=== PATIENT | female | born 1940 | race Caucasian/White ===

== ENCOUNTER 2018-05-13 14:26 | Outpatient (CLI) | payer MEDICARE, SELFPAY ==
--- NOTE | 2018-05-13 10:26 | DI.RAD_ITS ---
SYMPTOMS/DIAGNOSIS: BILATERAL KNEE PAIN RIGHT KNEE: Three views. No priors. There is mild narrowing of the medial femorotibial joint space and moderate narrowing of the patellofemoral joint. Periarticular spurring is seen involving all three joint compartments, particularly the patellofemoral joint. The bones appear intact. Soft tissues are unremarkable. 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 LEFT KNEE: Three views. No priors. Moderately severe narrowing of the patellofemoral joint space is noted. There is subchondral sclerosis and periarticular spurring also noted at this joint. Mild periarticular spurring is seen in both the medial and lateral femorotibial joint spaces. The bones are intact and normally mineralized. The soft tissues are unremarkable. 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
== END 2018-05-13 14:46 ==
PROVIDERS: PCP Family Medicine; Visit Provider Student in an Organized Health Care Education/Training Program
DX: M25.561 Pain in right knee (principal); M25.562 Pain in left knee; M17.11 Unilateral primary osteoarthritis, right knee; M17.12 Unilateral primary osteoarthritis, left knee
CPT/HCPCS: 20610; 73562; 99213; J1040

== ENCOUNTER 2018-10-15 00:16 | Outpatient (CLI) | payer MEDICARE, SELFPAY ==
--- NOTE | 2018-10-15 10:18 | DI.MAMMO_ITS ---
SYMPTOM/DIAGNOSIS: SCREENING, Z12.31 MAMMOGRAMS: Mammograms were interpreted according to the usual protocol including computer analysis with CAD system, tomosynthesis and C view imaging. The breasts are of moderate density with fairly symmetrical distribution of fibroglandular tissue. No dominant mass or clumped microcalcification is identified in either breast. The current examination is compared with previous examinations including 10/2017 and there has been no gross interval change in appearance in comparison with the previous studies. CONCLUSION: No specific evidence of malignancy at this time. Routine screening examinations are suggested at yearly intervals in this age group according to the ACS/ACR guidelines. Category 1. Breast density, category B. MQSA ASSESSMENT OF FINDINGS: Negative. Category 1. Patient will receive a letter notifying them of these results. BI-RADS category B. There are scattered areas of fibroglandular density.
== END 2018-10-15 00:36 ==
PROVIDERS: PCP Family Medicine; Visit Provider Family Medicine
DX: Z12.31 Encounter for screening mammogram for malignant neoplasm of breast (principal)
CPT/HCPCS: 77063; 77067

== ENCOUNTER 2018-10-28 09:02 | Emergency (ER) | payer MEDICARE, SELFPAY ==
[2018-10-28] VITALS (38 sets, daily range): BP systolic 121–162; BP diastolic 64–129; PULSE 54–72; RESP 12–24; TEMP 36.7–36.8; O2SAT 93–99
[2018-10-28] MEDS: Normal Saline Flush 10 ML SYR IVP (09:15)
--- NOTE | 2018-10-28 09:20 | DI.RAD_ITS ---
SYMPTOM/DIAGNOSIS: CHEST PAIN FRONTAL AND LATERAL CHEST: Comparison is made with 10/23/17. Heart size and pulmonary vasculature are within normal limits. The lungs are clear and well expanded. No effusions or pneumothoraces are identified. There are degenerative changes seen in the spine. IMPRESSION: No acute pulmonary process.
--- NOTE | 2018-10-28 09:30 | ED.GENADUL_ITS ---
Discharge Plan Disposition Patient Disposition: HOME Condition: Improving Discharge Details Chief Complaint: Chest Pain Clinical Impression: Atypical chest pain, Heart palpitations Primary Care Provider: Betsey Gilliam ED Provider: Daniel Interiano Home Meds and New Rx's Prescriptions: Continued calcium carbonate-vitamin D3 [Caltrate with Vitamin D3] 1 EACH tablet 2 ea PO DAILY RF: 0 cholecalciferol (vitamin D3) 1,000 UNIT capsule 2,000 unit PO DAILY RF: 0 magnesium oxide 250 MG tablet 250 mg PO DAILY RF: 0 lisinopril 20 MG tablet 20 mg PO DAILY Qty: 90 RF: 3 hydrochlorothiazide 25 MG tablet 25 mg PO DAILY Qty: 90 RF: 4 Atorvastatin Calcium 20 MG tablet 20 mg PO DAILY Qty: 90 RF: 0 aspirin 325 mg tablet 325 mg PO DAILY RF: 0 ibuprofen 200 mg capsule 400 mg PO DAILY RF: 0 levothyroxine 137 mcg tablet 137 mcg PO DAILY Qty: 90 RF: 4 Discharge Instructions Instructions: Chest Pain (ED), Palpitations (ED) Additional Instructions: Please wear the Holter monitor for the next 48 hours and return it as instructed by respiratory therapist. Return immediately to the emergency department for any new or significant worsening of symptoms or further concerns you may have. Otherwise follow-up with cardiology office for reassessment and further testing as needed. Referrals: Desean Alvarado MD [ NON-[facility] STAFF PHYSICIAN] - (Please follow-up with wire brush operator next 1-2 weeks as needed for reassessment or directed by their office) Discharge Data Discharge Date/Time-TO BE ENTERED AT DEPARTURE: 10/28/18 13:15 Medical Decision Making Patient presenting the emergency department chief complaint of burning chest pain. Patient states that this started yesterday morning approximately 2-3 hours after having breakfast. Patient states that it was intermittent throughout the day and called cardiology yesterday who recommended she come to the emergency department. Patient took Tums and aspirin and decided to wait and see how it did but continued to have intermittent episodes of this. She does state couple episodes of feeling like she may have had palpitations. She states ongoing chronic history of dyspnea with activity that is not changed or wo rsened. Physical exam is positive for anterior chest wall reproducible pain otherwise normal cardiac and respiratory examination. Plan to check labs to rule out ACS but I feel this is low likelihood given reproducible anterior chest wall pain along with a burning sensation substernal. Plan to give GI cocktail pending result Review of labs is nondiagnostic and shows no initial elevation of troponin. Plan to check second troponin and patient is agreeable to this. Patient states some improvement of symptoms after GI cocktail but occasional palpitations/flutters plan to check second troponin and if negative discharge patient with personnel monitor. Review of second troponin is also negative. Patient reassessed and states no further palpitation feelings and denies any current pain or discomfort. I feel that patient is able to be safely discharged with a Holter monitor and to follow-up with cardiology in the next 1-2 weeks or as directed by their office. Return precautions discussed. After discussion of diagnosis and plan of care patient has no further needs, questions, or concerns and states clear understanding to return to the emergency department for any worsening symptoms. Lab Data Lab results reviewed: Yes I reviewed the patient's lab results. ECG Data Attestation: I personally reviewed and interpreted this ECG (s) as follows: Prior ECG tracings: available for review Interpretation: EKG shows sinus rhythm with rate of 61, no STEMI, otherwise nondiagnostic EKG. EKG reviewed with Dr. Ana Paula Rodríguez. HPI General Mode of arrival: ambulatory . Date/Time Provider Initiated Documentation: 10/28/18 09:20 . Limitations to Documentation: no limitations . Information obtained by: patient and RN notes reviewed . History of Present Illness 78 year old F presents to the emergency department with the chief complaint of Chest pain, described as mild, with intensity rated at 1. Quality is described as burning, and is localized to the chest. Patient started experiencing this day(s) (1) and it has been intermittent. No relieving factors improve symptom(s), No exacerbating factors reported . Patient notes no other symptoms.. Related Data Home Medications Medication Instructions Recorded Confirmed calcium carbonate-vitamin D3 2 ea PO DAILY 12/17/12 10/28/18 [Caltrate with Vitamin D3] cholecalciferol (vitamin D3) 2,000 unit PO DAILY 12/17/12 10/28/18 magnesium oxide 250 mg PO DAILY 10/14/17 10/28/18 hydrochlorothiazide 25 mg PO DAILY #90 tab-cap 11/28/17 10/28/18 lisinopril 20 mg PO DAILY #90 tab-cap 11/28/17 10/28/18 aspirin 325 mg tablet 325 mg PO DAILY tab-cap 12/20/18 02/27/19 ibuprofen 200 mg capsule 400 mg PO DAILY tab-cap 08/20/18 10/28/18 levothyroxine 137 mcg tablet 137 mcg PO DAILY #90 tab-cap 09/04/18 10/28/18 Previous Rx's Medication Instructions Recorded hydrochlorothiazide 25 mg PO DAILY #90 tab-cap 11/28/17 lisinopril 20 mg PO DAILY #90 tab-cap 11/28/17 levothyroxine 137 mcg tablet 137 mcg PO DAILY #90 tab-cap 09/04/18 Allergies Allergy/AdvReac Type Severity Reaction Status Date / Time honey Allergy Severe GI Unverified 10/28/18 09:17 upset/swelling of throat naproxen Allergy Severe SOB, Unverified 10/28/18 09:17 Swelling LE Sulfa (Sulfonamide Allergy Severe Skin Rash Unverified 10/28/18 09:17 Antibiotics) clindamycin Allergy Intermediate drug rash Unverified 10/28/18 09:17 Penicillins Allergy Intermediate HIVES Unverified 10/28/18 09:17 cephalexin AdvReac Intermediate drug rash Unverified 10/28/18 09:17 steph flavor AdvReac Mild GI upset Unverified 10/28/18 09:17 General Stated Complaint: Chest Pain MARIA ELENA: 2 Review of Systems Constitutional Denies chills, Denies fever(s) and Denies malaise Cardiovascular Reports as per HPI, Reports chest pain, Denies chest pain with activity, Denies syncope, Denies irregular heart rhythm, Reports palpitations (Intermittent) and Reports dyspnea (With activity-chronic) Respiratory Denies cough, Denies hemoptysis and Reports dyspnea (With activity-chronic) Gastrointestinal Denies abdominal pain, Reports diarrhea (One episode today), Denies nausea and Denies vomiting Neurologic Denies syncope Psychiatric Denies anxiety Endocrine Denies cold intolerance, Denies heat intolerance and Reports palpitations (Intermittent) [facility] Surgical History Endometrial Biopsy Rotator Cuff Repair (~2008) Family History Mother Essential hypertension Non-Hodgkin's lymphoma Father Diabetes Essential hypertension Heart disease Maternal Grandfather Diabetes Essential hypertension Stroke Paternal Grandfather Colon cancer Maternal Grandmother Stroke Paternal Grandmother Stroke Heart disease Son No problems noted. Son No problems noted. Son No problems noted. 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 pets and animals: Yes pets and animals: cat(s) frequency: daily duration: 30-45 minutes/day Smoking and Tabacco status: Former Tobacco Use quit date: 09/01/84 second hand exposure: No alcohol intake: current alcohol intake frequency: 0-2 drinks per day Alcohol type: wine substance use type: does not use reginald/pentecostal: No preference special reginald needs: No Exam Const General: cooperative, healthy appearing, comfortable, no acute distress, not diaphoretic and not ill appearing Nutritional Appearance: average body habitus Orientation: alert, awake and oriented x3 Limitations: mental status not altered Neck Neck: normal visual inspection, full ROM, trachea midline, supple and no anterior neck swelling Thyroid: thyroid normal Carotids: normal carotid upstroke and no bruits Chest Chest: normal inspection of the chest and tenderness (Left anterior chest wall) Resp Effort & Inspection: normal respiratory effort and able to speak in complete sentences Auscultation: clear to auscultation bilaterally Cardio Jugular venous pressure: no JVD Palpation: normal PMI Rate: regular rate Rhythm: regular rhythm Heart Sounds: S1 normal, S2 normal, no click, no gallops, no murmurs and no rubs Bruits: no abdominal aortic bruits and no carotid bruits Pulses: radial pulses present bilaterally 2+ GI Inspection: normal to inspection Palpation: soft, no aortic enlargement, no pulsatile masses and nontender Auscultation: normal bowel sounds Skin General skin exam: no rashes or lesions noted Neuro General: alert, awake, oriented x3, tone normal and moves all extremities Course Vital Signs Temperature 36.7 C 10/28/18 09:13 Pulse 68 10/28/18 09:13 Respiratory Rate 14 10/28/18 09:13 Blood Pressure 162/83 H 10/28/18 09:13 Pulse Oximetry 99 10/28/18 09:13 Temperature 36.7 C 10/28/18 09:13 Temperature Source Skin 10/28/18 09:13 Pulse 68 10/28/18 09:13 Respiratory Rate 16 10/28/18 09:18 Respiratory Effort 10/28/18 09:22 Respiratory Depth Normal 10/28/18 09:18 Respiratory Pattern Normal 10/28/18 09:18 Blood Pressure 162/83 H 10/28/18 09:13 Pulse Oximetry 99 10/28/18 09:13 Oxygen Delivery Method Room Air 10/28/18 09:13 Oxygen Flow Rate 0 10/28/18 09:13 Pain Level 0 10/28/18 09:13 Comment 10/28/18 09:13
[2018-10-28 09:43] LABS: Abs Immature Grans 0.02 k/cumm (0.0-0.09); Absolute Basophil Count 0.07 k/cumm (0.0-0.2); Absolute Eosinophil Count 0.51 k/cumm (0.0-0.7); Absolute Lymphocyte Count 1.58 k/cumm (1.2-3.4); Absolute Monocyte Count 0.65 k/cumm (0.11-0.7); Absolute Neutrophil Count 3.55 k/cumm (1.2-6.7); Basophils % 1.1; HCT 41.6 % (36.0-46.0); HGB 13.8 g/dL (12.0-15.5); Immature Grans % 0.3; Lymphocytes % 24.8; Mean Corp. HGB Concentration 33.2 g/dL (32.0-36.0); Mean Corpuscular Hemoglobin 31.3 pg (27.0-33.0); Mean Corpuscular Volume 94.3 fL (80-95); Mean Platelet Volume 10.1 fL (8.0-11.0); Monocytes % 10.2; Neutrophils % 55.6; Platelet Count 206 x1000/uL (130-400); RBC 4.41 m/cumm (4.00-5.20); RBC Distribution Width 12.8 % (11.7-14.6); White Blood Cell Count 6.38 k/cumm (4.4-10.8)
[2018-10-28 10:12] LABS: ALT 24 U/L (12-78); AST 18 U/L (15-37); Albumin 3.6 g/dL (3.4-5.0); Alkaline Phosphatase 107 U/L (46-116); Anion Gap 7.6 mmol/L (3-11); BUN 21 mg/dL (7-18); Bilirubin, Total 0.4 mg/dL (0.2-1.0); CO2 29.4 mmol/L (21.0-32.0); CREATININE 0.69 mg/dL (0.55-1.02); Calcium 9.3 mg/dL (8.5-10.1); Chloride 106 mmol/L (98-107); Glucose 92 mg/dL (70-100); Magnesium 2.1 mg/dL (1.8-2.4); Potassium 3.8 mmol/L (3.5-5.1); Sodium 143 mmol/L (136-145); Total Protein 6.8 g/dL (6.4-8.2); Troponin I < 0.02 ng/mL (0.00-0.06)
[2018-10-28 12:27] LABS: Troponin I < 0.02 ng/mL (0.00-0.06)
--- NOTE | 2018-10-29 08:30 | PDOC.ERCMPRO ---
Care Management Progress Note 10/29-Leroy STEPHENSON requested assistance with a cardiology consult in 1-2 weeks for chest pain, heart palpitations. Referral faxed to [facility] this am.
== END 2018-10-28 13:15 | disposition home or self-care (01) ==
PROVIDERS: Emergency Provider Nurse Practitioner Family; PCP Family Medicine
DX: R07.89 Other chest pain (principal); R00.2 Palpitations
CPT/HCPCS: 36415; 80053; 93005; 99285; 71046; 83735; 84484; 85025; 93010; 93225

== ENCOUNTER 2018-10-31 11:29 | Outpatient (CLI) | payer MEDICARE, SELFPAY ==
--- NOTE | 2018-11-02 12:06 | HOLTER_ITS ---
DATE OF DICTATION: November 02, [address]: 1 day, 18 hours Baseline rhythm sinus. Rare single PAC. Two bursts of SVT, longest 4-beat duration, fastest 146 bpm. No atrial fibrillatio n. Rare single PVC. One couplet. No VT. No bradycardia/pause. SYMPTOMS: Shortness of breath noted twice during sinus rhythm 65, [address]-T wave changes. Flutter noted four times during sinus rhythm 73-86 bpm. Average heart rate 69 bpm, range 51-130 bpm.
== END 2018-10-31 11:49 ==
PROVIDERS: PCP Family Medicine; Visit Provider Family Medicine
DX: R00.2 Palpitations (principal); R07.89 Other chest pain; I47.1 Supraventricular tachycardia
CPT/HCPCS: 93226

== ENCOUNTER 2018-11-02 09:55 | Outpatient (CLI) | payer MEDICARE, SELFPAY | END 2018-11-02 10:15 | PROVIDERS: PCP Family Medicine; Referring Provider Nurse Practitioner Family; Visit Provider Internal Medicine Interventional Cardiology | DX: R00.2 Palpitations (principal); R07.89 Other chest pain; I47.1 Supraventricular tachycardia | CPT/HCPCS: 93227 ==

== ENCOUNTER → 2019-01-15 09:29 | Outpatient (BNVA) | payer MEDICARE, SELFPAY | PROVIDERS: PCP Family Medicine; Referring Provider Family Medicine; Visit Provider Student in an Organized Health Care Education/Training Program | DX: M17.12 Unilateral primary osteoarthritis, left knee (principal); Z98.890 Other specified postprocedural states; M17.11 Unilateral primary osteoarthritis, right knee | CPT/HCPCS: 20610; 99213; J1040 ==

== ENCOUNTER 2019-03-22 01:47 | Outpatient (CLI) | payer MEDICARE, SELFPAY ==
[2019-03-22 10:01] LABS: Hemoglobin A1C 5.5 % (4.5-6.2)
[2019-03-22 10:08] LABS: ALT 31 U/L (12-78); AST 15 U/L (15-37); Albumin 3.7 g/dL (3.4-5.0); Alkaline Phosphatase 93 U/L (46-116); Anion Gap 9.7 mmol/L (3-11); BUN 22 mg/dL (7-18); Bilirubin, Total 0.5 mg/dL (0.2-1.0); CO2 27.3 mmol/L (21.0-32.0); CREATININE 0.75 mg/dL (0.55-1.02); Calculated LDL 83 mg/dL; Chloride 104 mmol/L (98-107); Cholesterol 195 mg/dL (50-200); Glucose 90 mg/dL (70-100); HDL Cholesterol 103 mg/dL (40-60); Potassium 4.2 mmol/L (3.5-5.1); Sodium 141 mmol/L (136-145); TSH 0.94 uIU/mL (0.36-3.74); Total Protein 6.5 g/dL (6.4-8.2); Triglyceride 47 mg/dL (30-150)
[2019-03-23 11:23] LABS: Lyme Ab w Rflx to Lyme Confirm Negative
== END 2019-03-22 02:07 ==
PROVIDERS: PCP Family Medicine; Visit Provider Family Medicine
DX: I10 Essential (primary) hypertension (principal); R73.9 Hyperglycemia, unspecified; E03.9 Hypothyroidism, unspecified; W57.XXXA Bitten or stung by nonvenomous insect and other nonvenomous arthropods, initial encounter; E78.5 Hyperlipidemia, unspecified; T14.8XXA Other injury of unspecified body region, initial encounter
CPT/HCPCS: 36415; 80053; 80061; 83721; 83036; 84443; 86618

== ENCOUNTER 2019-09-22 07:00 | Outpatient (CLI) | payer MEDICARE, SELFPAY ==
[2019-09-22 14:09] LABS: FREE T4 1.43 ng/dL (0.76-1.46); TSH 0.23 uIU/mL (0.36-3.74)
[2019-09-22 17:43] LABS: T3, Total 125 ng/dL (97-169)
== END 2019-09-22 07:20 ==
PROVIDERS: PCP Family Medicine; Visit Provider Family Medicine
DX: E03.9 Hypothyroidism, unspecified (principal); I10 Essential (primary) hypertension
CPT/HCPCS: 36415; 84439; 84443; 84480

== ENCOUNTER 2019-10-27 01:40 | Outpatient (CLI) | payer MEDICARE, SELFPAY ==
--- NOTE | 2019-10-27 15:20 | DI.MAMMO_ITS ---
EXAM: MAMMO SCREENING CLINICAL HISTORY: screening,Z12.39 TECHNIQUE: Mammograms were interpreted according to the usual protocol including computer analysis w ith CAD system, tomosynthesis and C-view imaging. COMPARISON: 2009 through 2018 FINDINGS: The breasts are composed of scattered fibroglandular densities, Breast Density category B. No suspicious masses or suspicious microcalcifications are seen. No skin thickening or abnormal axillary lymph nodes are seen. There has been no significant change from prior exams. IMPRESSION: BIRADS Category 1, negative mammogram. Yearly screening mammography is recommended.
== END 2019-10-27 02:00 ==
PROVIDERS: PCP Family Medicine; Visit Provider Family Medicine
DX: Z12.31 Encounter for screening mammogram for malignant neoplasm of breast (principal)
CPT/HCPCS: 77063; 77067

== ENCOUNTER 2020-08-21 08:08 | Outpatient (CLI) | payer MEDICARE, SELFPAY ==
[2020-08-21] MEDS: Omnipaque 350 MG/ML 50 ML BTL IJ (12:32)
[2020-08-21] MEDS: Breeza Beverage 473 ML BTL PO (12:33)
[2020-08-21 13:08] LABS: Abs Immature Grans 0.03 10^3/uL (0.0-0.06); Absolute Basophil Count 0.07 10^3/uL (0.0-0.2); Absolute Eosinophil Count 0.22 10^3/uL (0.0-0.7); Absolute Lymphocyte Count 2.08 10^3/uL (1.2-3.4); Absolute Monocyte Count 0.64 10^3/uL (0.1-0.8); Basophils % 0.8; Eosinophils % 2.6; HCT 41.6 % (36.0-46.0); Immature Grans % 0.4; Lymphocytes % 24.9; MCH 31.3 pg (27.0-33.0); MCHC 33.7 % (32.0-36.0); MCV 93.1 fL (80-95); MPV 9.6 fL (8.0-11.0); Monocytes % 7.7; Neutrophils % 63.6; Nucleated RBC 0 %; Platelet Count 250 10^3/uL (130-400); RBC 4.47 10^6/uL (3.93-5.22); RDW 11.9 % (11.7-14.6); RDW-SD 41.2 fL; WBC 8.34 10^3/uL (4.4-10.8)
[2020-08-21 13:28] LABS: ALT 31 U/L (14-59); AST 21 U/L (15-37); Albumin 3.7 g/dL (3.4-5.0); Alkaline Phosphatase 112 U/L (46-116); Anion Gap 7.2 mmol/L (3-11); BUN 20 mg/dL (7-18); Bilirubin, Total 0.4 mg/dL (0.2-1.0); CO2 28.8 mmol/L (21.0-32.0); CREATININE 0.77 mg/dL (0.55-1.02); Calcium 9.5 mg/dL (8.5-10.1); Chloride 101 mmol/L (98-107); Glucose 103 mg/dL (74-106); Lipase 158 U/L (73-393); Potassium 3.7 mmol/L (3.5-5.1); Sodium 137 mmol/L (136-145); Total Protein 7.1 g/dL (6.4-8.2)
--- NOTE | 2020-08-21 14:10 | DI.CT_ITS ---
EXAM: CT ABDOMEN PELVIS W CLINICAL HISTORY: Pain, vomitting, nausea, fever, R10.11, RUQ PAIN TECHNIQUE: Imaging Protocol: Axial computed tomography images with coronal and sagittal reformatted images were created and reviewed CONTRAST MATERIAL: Intravenous: Omnipaque 350 Contrast volume:100 mL Oral: Yes COMPARISON: No exams were available for comparison FINDINGS: ABDOMEN: Lung Bases: Scarring or atelectasis in the lung bases. Liver: Normal density. No measurable mass. Portal, Superior Mesenteric, and Splenic Veins: Unremarkable. Gallbladder and Biliary Tract: No radiodense calculus or dilation. Pancreas: Normal density, no abnormal calcifications or inflammatory process. Spleen: Normal. Adrenals: No masses seen. Kidneys: Normal size, contour and axis. No radiodense stones or obstructive uropathy. There are bilat eral renal cysts. The largest is in the superior pole of the left kidney and measures 5.4 cm in maxi mum diameter. Abdominal Aorta: Abdominal portion non-dilated. Mild atherosclerosis. Bowel: No obstruction or bowel wall thickening. No evidence of appendicitis. Diverticulosis of the s igmoid colon but no evidence of acute diverticulitis. There is a 2.7 cm diverticulum arising from th e posterior wall of the fundus of the stomach. Peritoneal Cavity: No ascites, collection or mesenteric inflammatory response. Lymph Nodes: Within normal limits. Bones: Degenerative changes. Bones are osteopenic. Soft Tissues: Small fat containing umbilical hernia. PELVIS: Bladder: Symmetric distention, no gross wall thickening. Reproductive Organs: Unremarkable as visualized. Lymph Nodes: Within normal limits. Bones: Degenerative changes. Osteopenia. IMPRESSION: No acute abdominal or pelvic process. RADIATION DOSE DELIVERED: 866.05mGy.cm Total DLP DATA REPOSITORY: All CT scans at this facility are submitted to the National Radiology Data Registry (NRDR) Dose Index Registry (DIR) with the [employer] (ACR). RADIATION OPTIMIZATION: All CT scans at this facility use at least one of these dose optimization te chniques: automated exposure control; mA and/or kV adjustment per patient size (includes targeted exa ms where dose is matched to clinical indication); or iterative reconstruction.
[2020-08-21] MEDS: Normal Saline - Diluent 50 ML VIAL IV (14:15)
[2020-08-21] MEDS: Omnipaque 350 MG/ML 100 ML BTL IJ (14:16)
[2020-08-21] MEDS: Normal Saline Flush 10 ML SYR IVP (14:17)
== END 2020-08-21 08:28 ==
PROVIDERS: PCP Family Medicine; Visit Provider Physician Assistant
DX: R10.11 Right upper quadrant pain (principal); R11.2 Nausea with vomiting, unspecified; R50.9 Fever, unspecified; I25.118 Atherosclerotic heart disease of native coronary artery with other forms of angina pectoris
CPT/HCPCS: 80053; 83690; 74177; 85025; J3490; Q9967

== ENCOUNTER 2020-11-27 04:32 | Outpatient (CLI) | payer MEDICARE, SELFPAY ==
[2020-11-27 08:52] LABS: Calculated LDL 98 mg/dL (<100); Cholesterol 198 mg/dL (<200); HDL Cholesterol 92 mg/dL (40-60); TSH 0.34 uIU/mL (0.36-3.74); Triglyceride 42 mg/dL (<150)
== END 2020-11-27 04:33 | disposition home or self-care (01) ==
LOC: LBO 04:32
PROVIDERS: PCP Family Medicine; Visit Provider Family Medicine
DX: I10 Essential (primary) hypertension (principal); E03.9 Hypothyroidism, unspecified
CPT/HCPCS: 36415; 80061; 84443

== ENCOUNTER 2021-01-16 03:22 | Outpatient (CLI) | payer MEDICARE, SELFPAY ==
--- NOTE | 2021-01-16 06:45 | DI.MAMMO_ITS ---
Exam(s) MAMMO SCREENING EXAM: MAMMO SCREENING CLINICAL HISTORY: screening,z12.39 TECHNIQUE: Mammograms were interpreted according to the usual protocol including computer analysis w [employer] CAD system, tomosynthesis and C-view imaging. COMPARISON: 2011 through 2019 FINDINGS: The breasts are composed of scattered fibroglandular densities, Breast Density category B. No suspicious masses or suspicious microcalcifications are seen. No skin thickening or abnormal axillary lymph nodes are seen. There has been no significant change from prior exams. IMPRESSION: BI-RADS Category 1, Negative mammogram Yearly screening mammography is recommended. Breast Density - Category B, scattered fibroglandular densities. A negative radiographic report should not delay biopsy if a dominant or clinically suspicious mass is present. Up to ten percent of cancers are not identified on mammography. A negative report may reinforce clinical impression. Adenosis and dense breasts may obscure an underlying neoplasm. False positive reports average 6 to 10%. Patient will receive a letter notifying them of these results.
[2021-01-16 09:10] LABS: TSH 0.56 uIU/mL (0.36-3.74)
== END 2021-01-16 03:23 | disposition home or self-care (01) ==
LOC: LBO 03:22
PROVIDERS: PCP Family Medicine; Visit Provider Family Medicine
DX: E03.9 Hypothyroidism, unspecified (principal); Z12.31 Encounter for screening mammogram for malignant neoplasm of breast
CPT/HCPCS: 36415; 77063; 77067; 84443

== ENCOUNTER 2021-01-19 08:30 | Outpatient (CLI) | payer MEDICARE, SELFPAY | END 2021-01-19 08:31 | LOC: OCO 02-02 07:09 | PROVIDERS: PCP Family Medicine; Visit Provider Physician Assistant | DX: M17.11 Unilateral primary osteoarthritis, right knee (principal); M17.12 Unilateral primary osteoarthritis, left knee | CPT/HCPCS: 20610; J1040 ==

== ENCOUNTER 2021-04-26 12:16 | Outpatient (CLI) | payer MEDICARE, SELFPAY ==
--- NOTE | 2021-04-26 12:15 | RT.EKG_ITS ---
APPROVED REPORT Exam: Resting ECG Reason for Exam: irreg rhythm Patient Location: O HR:71 bpm ECG Measurements Heart Rate 71 AXIS MN 156 P 44 QRSd 113 QRS 90 QT 424 T 54 QTc 460 Conclusion Sinus rhythm...normal P axis, V-rate 60- 99 Ventricular bigeminy...bigeminy string>4 w/ V complexes
== END 2021-04-26 12:17 | disposition home or self-care (01) ==
LOC: DI.CM 12:17
PROVIDERS: PCP Family Medicine; Visit Provider Nurse Practitioner Family
DX: I49.9 Cardiac arrhythmia, unspecified (principal)
CPT/HCPCS: 93010

== ENCOUNTER 2021-10-04 10:03 | Outpatient (CLI) | payer MEDICARE, SELFPAY ==
--- NOTE | 2021-10-04 09:00 | DI.RAD_ITS ---
Exam(s) XR KNEE RT 3V AP,LAT,PAIGE EXAM: XR KNEE RT 3V AP,LAT,PAIGE CLINICAL HISTORY: pain TECHNIQUE: COMPARISON: CR XR knee LT 3V AP,lat,paige from 05/13/2018 FINDINGS: Three views were obtained. The lateral view suggests a probable narrowing of the cartilaginous joint space of patellofemoral joint, additional evaluation with Merchant view should probably be obtained. There is mild narrowing of medial tibiofemoral cartilaginous joint space. There are mild to moderate marginal osteophytes of patellofemoral and medial tibiofemoral joints. No gross joint effusion seen on the lateral view. 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 RADIATION DOSE DELIVERED: Total DLP
--- NOTE | 2021-10-04 09:00 | DI.RAD_ITS ---
Exam(s) XR KNEE LT 3V AP,LAT,PAIGE EXAM: XR KNEE LT 3V AP,LAT,PAIGE CLINICAL HISTORY: pain TECHNIQUE: COMPARISON: CR XR KNEE RT 3V AP,LAT,PAIGE from 10/04/2021 FINDINGS: Three views were obtained. There is probable narrowing of the cartilaginous joint space of the mejia lofemoral joint. This may be better evaluated on a Merchant view. Otherwise cartilaginous joint spa cristobal are well maintained. Mild marginal osteophyte formation noted at the medial tibiofemoral joint a nd patellofemoral joint. No gross joint effusion seen on the lateral view. IMPRESSION: DJD predominantly involving patellofemoral joint, additional Merchant view may be obtained to evaluat e this joint RADIATION DOSE DELIVERED: Total DLP
== END 2021-10-04 10:04 | disposition home or self-care (01) ==
LOC: DIORS 10:03
PROVIDERS: PCP Family Medicine; Referring Provider Family Medicine; Visit Provider Student in an Organized Health Care Education/Training Program
DX: M17.11 Unilateral primary osteoarthritis, right knee; M17.12 Unilateral primary osteoarthritis, left knee
CPT/HCPCS: 20610; 73562; 99213; J1040

== ENCOUNTER 2022-01-09 01:39 | Outpatient (CLI) | payer MEDICARE, SELFPAY ==
[2022-01-09 10:07] LABS: ALT 30 U/L (14-59); AST 18 U/L (15-37); Albumin 3.8 g/dL (3.4-5.0); Alkaline Phosphatase 119 U/L (46-116); Anion Gap 6.9 mmol/L (3-11); BUN 13 mg/dL (7-18); Bilirubin, Total 0.6 mg/dL (0.2-1.0); CO2 29.1 mmol/L (21.0-32.0); CREATININE 0.6 mg/dL (0.55-1.02); Calcium 8.7 mg/dL (8.5-10.1); Calculated LDL 90 mg/dL (<100); Chloride 104 mmol/L (98-107); Cholesterol 188 mg/dL (<200); Glucose 96 mg/dL (74-106); HDL Cholesterol 86 mg/dL (40-60); Sodium 140 mmol/L (136-145); TSH 0.12 uIU/mL (0.36-3.74); Total Protein 6.7 g/dL (6.4-8.2); Triglyceride 62 mg/dL (<150)
== END 2022-01-09 01:40 | disposition home or self-care (01) ==
LOC: LBO 01:39
PROVIDERS: Family Medicine; PCP Family Medicine; Visit Provider Family Medicine
DX: E03.9 Hypothyroidism, unspecified (principal); I10 Essential (primary) hypertension; I25.118 Atherosclerotic heart disease of native coronary artery with other forms of angina pectoris
CPT/HCPCS: 36415; 80053; 80061; 84443

== ENCOUNTER → 2022-03-22 01:30 | Outpatient (CLI) | payer MEDICARE, SELFPAY ==
--- NOTE | 2022-03-22 07:00 | DI.DEXA_ITS ---
Exam(s) XR DEXA BONE DENSITY W/WO NOAH EXAM: XR DEXA BONE DENSITY W/WO NOAH CLINICAL HISTORY: osteoporosis,M81.0 TECHNIQUE: [employer] Horizon C densitometer analysis of left hip, lumbar spine and left forearm. COMPARISON: CT CT ABDOMEN PELVIS W from 08/21/20202006 through 2014 FINDINGS: Lateral view of the thoracic and lumbar spine shows no evidence of compression fractures. Bone mineral density measurements of the lumbar spine correspond to a total T-score of -3.2, in the osteoporotic range. This represents an 8.8 decrease from 2014 and a 7 percent decrease when compared with 2006. Bone mineral density measurements of the left hip correspond to a total T-score of -2.5. The femora l neck T-score is -2.7, in the osteoporotic range. This represents a 11.9 percent decrease compared with 2014 and 14.1 percent decrease compared with 2006.. The left forearm bone mineral density measurements correspond to a T-score of the distal 3rd of -4.7 , in the osteoporotic range. This represents an 11.9 percent decrease when from 2014 and in 19.3 per cent decrease from 2010. The forearm was not analyzed in 2006.. IMPRESSION: Osteoporosis of the lumbar spine, left hip and left forearm with decreased bone mineral density johnathan red with priors.
--- NOTE | 2022-03-22 07:00 | DI.MAMMO_ITS ---
Exam(s) MAMMO SCREENING EXAM: MAMMO SCREENING CLINICAL HISTORY: screening,Z12.39 TECHNIQUE: Mammograms were interpreted according to the usual protocol including computer analysis w [email or web address] CAD system, tomosynthesis and C-view imaging. COMPARISON: 2012 through 2020 FINDINGS: The breasts are composed of scattered fibroglandular densities, Breast Density category B. No suspicious masses or suspicious microcalcifications are seen. No skin thickening or abnormal axillary lymph nodes are seen. There has been no significant change from prior exams. IMPRESSION: BI-RADS Category 1, Negative mammogram Yearly screening mammography is recommended. Breast Density - Category B, scattered fibroglandular densities. A negative radiographic report should not delay biopsy if a dominant or clinically suspicious mass is present. Up to ten percent of cancers are not identified on mammography. A negative report may reinforce clinical impression. Adenosis and dense breasts may obscure an underlying neoplasm. False positive reports average 6 to 10%. Patient will receive a letter notifying them of these results.
== END ==
PROVIDERS: PCP Family Medicine; Visit Provider Family Medicine
DX: Z12.31 Encounter for screening mammogram for malignant neoplasm of breast (principal); M81.0 Age-related osteoporosis without current pathological fracture; R92.8 Other abnormal and inconclusive findings on diagnostic imaging of breast
CPT/HCPCS: 77063; 77067; 77080

== ENCOUNTER → 2022-03-25 07:55 | Outpatient (BNVA) | payer MEDICARE, SELFPAY | PROVIDERS: PCP Family Medicine; Referring Provider Family Medicine; Visit Provider Physician Assistant Surgical | DX: M17.12 Unilateral primary osteoarthritis, left knee (principal); M17.11 Unilateral primary osteoarthritis, right knee | CPT/HCPCS: 20610; J1040 ==

== ENCOUNTER 2022-04-08 09:21 | Outpatient (CLI) | payer MEDICARE, SELFPAY ==
[2022-04-08 12:53] LABS: TSH (W/Ref FT4) 0.74 uIU/mL (0.36-3.74)
[2022-04-09 10:01] LABS: Lyme Ab w Rflx to Lyme Confirm Negative (Negative)
== END 2022-04-08 09:22 | disposition home or self-care (01) ==
LOC: LOS 09:25
PROVIDERS: PCP Family Medicine; Visit Provider Family Medicine
DX: E03.9 Hypothyroidism, unspecified (principal); M25.59 Pain in other specified joint
CPT/HCPCS: 36415; 84443; 86618

== ENCOUNTER → 2022-06-06 09:30 | Outpatient (BNVA) | payer MEDICARE, SELFPAY | PROVIDERS: PCP Family Medicine; Referring Provider Family Medicine; Visit Provider Student in an Organized Health Care Education/Training Program | DX: M17.12 Unilateral primary osteoarthritis, left knee (principal) | CPT/HCPCS: 20610; J1040 ==

== ENCOUNTER 2022-07-03 10:36 | Outpatient (CLI) | payer MEDICARE, SELFPAY ==
--- NOTE | 2022-07-03 09:45 | DI.RAD_ITS ---
Exam(s) XR SHOULDER RT COMPLETE 2+V EXAM: XR SHOULDER RT COMPLETE 2+V CLINICAL HISTORY: right shoulder pain. TECHNIQUE: 2D digital imaging was performed. Two views. COMPARISON: CR RIGHT SHOULDER COMPLETE from 01/26/2009 FINDINGS: BONES: No acute fracture is present. No bony destructive lesion is seen. Bones appear osteopenic. JOINTS: No dislocation present. Mild spurring at AC joint. Mild spurring glenohumeral joint. Gleno humeral joint space is maintained. SOFT TISSUE: Normal. IMPRESSION: Mild degenerative changes. DATA REPOSITORY: RADIATION DOSE DELIVERED:
== END 2022-07-03 10:37 | disposition home or self-care (01) ==
LOC: DIORS 10:37
PROVIDERS: PCP Family Medicine; Referring Provider Family Medicine; Visit Provider Student in an Organized Health Care Education/Training Program
DX: M12.811 Other specific arthropathies, not elsewhere classified, right shoulder; M75.21 Bicipital tendinitis, right shoulder
CPT/HCPCS: 99214; 73030

== ENCOUNTER → 2022-09-30 09:24 | Outpatient (BNVA) | payer MEDICARE, SELFPAY | PROVIDERS: PCP Family Medicine; Referring Provider Family Medicine; Visit Provider Student in an Organized Health Care Education/Training Program | DX: M17.11 Unilateral primary osteoarthritis, right knee (principal); M17.12 Unilateral primary osteoarthritis, left knee | CPT/HCPCS: 20610; J1040 ==

== ENCOUNTER 2023-01-14 02:46 | Outpatient (CLI) | payer MEDICARE, SELFPAY ==
[2023-01-14 10:23] LABS: Anion Gap 7.7 mmol/L (3-11); BUN 21 mg/dL (7-18); CO2 30.3 mmol/L (21.0-32.0); CREATININE 0.8 mg/dL (0.55-1.02); Calcium 9.5 mg/dL (8.5-10.1); Calculated LDL 90 mg/dL (<100); Chloride 105 mmol/L (98-107); Cholesterol 195 mg/dL (<200); Estimated GFR 74.44 (mL/min/1.73m2); Glucose 104 mg/dL (74-106); HDL Cholesterol 95 mg/dL (40-60); Potassium 4.3 mmol/L (3.5-5.1); Sodium 143 mmol/L (136-145); TSH (W/Ref FT4) 1.57 uIU/mL (0.36-3.74); Triglyceride 50 mg/dL (<150)
== END 2023-01-14 02:47 | disposition home or self-care (01) ==
LOC: LBO 02:46
PROVIDERS: PCP Family Medicine; Visit Provider Family Medicine
DX: I10 Essential (primary) hypertension (principal); E03.9 Hypothyroidism, unspecified
CPT/HCPCS: 36415; 80048; 80061; 84443

== ENCOUNTER 2023-02-14 01:45 | Outpatient (RCR) | payer MEDICARE, SELFPAY ==
[2023-02-14] MEDS: Denosumab 60 MG/ML SYR SC (09:23)
== END 2023-02-28 23:59 | disposition home or self-care (01) ==
LOC: INF 01:45
PROVIDERS: PCP Family Medicine; Visit Provider Family Medicine
DX: M81.0 Age-related osteoporosis without current pathological fracture (principal)
CPT/HCPCS: 96372; J0897

== ENCOUNTER 2023-03-13 02:59 | Outpatient (CLI) | payer MEDICARE, SELFPAY ==
[2023-03-13 09:24] LABS: ALT 23 U/L (14-59); AST 16 U/L (15-37); Albumin 3.9 g/dL (3.4-5.0); Alkaline Phosphatase 110 U/L (46-116); Anion Gap 9.4 mmol/L (3-11); BUN 22 mg/dL (7-18); Bilirubin, Total 0.6 mg/dL (0.2-1.0); CO2 24.6 mmol/L (21.0-32.0); CREATININE 0.8 mg/dL (0.55-1.02); Calcium 8.5 mg/dL (8.5-10.1); Chloride 107 mmol/L (98-107); Estimated GFR 74.44 (mL/min/1.73m2); Glucose 110 mg/dL (74-106); PHOSPHORUS 3.4 mg/dL (2.6-4.7); Potassium 4.1 mmol/L (3.5-5.1); Sodium 141 mmol/L (136-145); Total Protein 6.9 g/dL (6.4-8.2)
[2023-03-13 10:15] LABS: Vitamin D 25 Total 43.1 ng/mL (30-100)
[2023-03-13 21:49] LABS: Parathyroid Hormone,Intact 171 pg/mL (19-88)
== END 2023-03-13 03:00 | disposition home or self-care (01) ==
LOC: LBO 02:59
PROVIDERS: PCP Family Medicine; Visit Provider Family Medicine
DX: M81.0 Age-related osteoporosis without current pathological fracture (principal); N18.9 Chronic kidney disease, unspecified
CPT/HCPCS: 20610; 36415; 80053; 82306; 83970; 84100; J1040

== ENCOUNTER 2023-03-20 10:47 | Outpatient (REF) | payer MEDICARE, SELFPAY ==
[2023-03-20 12:00] LABS: Creatinine,Urine 50.06 mg/dL
[2023-03-20 12:01] LABS: Total Volume 2400 ml
[2023-03-21 09:07] LABS: Calcium Urine 3.4 mg/dL (See Note); Calcium Urine 24 hr 82 mg/24hr (100-300); Timed Urine Volume 2400 mL
== END 2023-03-20 10:48 | disposition home or self-care (01) ==
LOC: LBN 10:47
PROVIDERS: PCP Family Medicine; Visit Provider Family Medicine
DX: M81.0 Age-related osteoporosis without current pathological fracture (principal)
CPT/HCPCS: 81050; 82340; 82570

== ENCOUNTER → 2023-05-14 01:26 | Outpatient (CLI) | payer MEDICARE, SELFPAY ==
--- NOTE | 2023-05-14 07:45 | DI.MAMMO_ITS ---
Exam(s) MAMMO SCREENING EXAM: MAMMO SCREENING CLINICAL HISTORY: screening,z12.30. TECHNIQUE: Bilateral full field digital CC and MLO mammographic images were obtained with 3D tomosyn thesis and utilizing computer aided detection (CAD). COMPARISON: Prior mammograms were reviewed. FINDINGS: There has been no significant change in the appearance and distribution of the fibroglandular tissue. There are no CAD designations. There are no new spiculated masses nor malignant appearing microcalcification groups. There is no significant architectural distortion nor skin thickening-retraction. IMPRESSION: No radiographic evidence of malignancy. BI-RADS Category 1 - Negative Breast Density - Category B - Scattered areas of fibroglandular density Breast density Category C or D implies that the patient has dense breast tissue. Dense breast tissue can make it harder to find cancer on a mammogram. Dense breast tissue is also associated with an incr eased risk of breast cancer. This information about the result of the mammogram report was provided to the patient to raise their awareness. Use this report when you speak with the patient about their risks for breast cancer, which includes their family history. At that time, you may recommend additional screening tests (Ultrasoun d or MRI) as these tests may add significant information. A negative radiographic report should not delay biopsy if a dominant or clinically suspicious mass is present. Up to ten percent of cancers are not identified on mammography. A negative report may reinforce clinical impression. Adenosis and dense breasts may obscure an underlying neoplasm. False positive reports average 6 to 10%. Patient will receive a letter notifying them of these results.
== END ==
PROVIDERS: PCP Family Medicine; Visit Provider Family Medicine
DX: Z12.31 Encounter for screening mammogram for malignant neoplasm of breast (principal)
CPT/HCPCS: 77063; 77067

== ENCOUNTER 2023-08-04 13:15 | Outpatient (REF) | payer MEDICARE, SELFPAY ==
[2023-08-04 18:10] LABS: Creatinine,Urine 44.51 mg/dL
[2023-08-04 18:14] LABS: Creatinine,24hr Ur 1.02 g/24hr (0.60-1.80); Total Volume 2300 ml
[2023-08-06 08:32] LABS: Calcium Urine 12.8 mg/dL (See Note); Calcium Urine 24 hr 294 mg/24hr (100-300); Timed Urine Volume 2300 mL
== END 2023-08-04 13:16 | disposition home or self-care (01) ==
LOC: LBN 13:15
PROVIDERS: PCP Family Medicine; Visit Provider Internal Medicine Endocrinology, Diabetes & Metabolism
DX: M81.0 Age-related osteoporosis without current pathological fracture (principal)
CPT/HCPCS: 81050; 82340; 82570

== ENCOUNTER 2023-09-17 10:21 | Outpatient (REF) | payer MEDICARE, SELFPAY ==
[2023-09-17 13:46] LABS: Creatinine,24hr Ur 1.11 g/24hr (0.60-1.80); Total Volume 1750 ml
[2023-09-18 08:50] LABS: Calcium Urine 15.5 mg/dL (See Note); Calcium Urine 24 hr 271 mg/24hr (100-300); Timed Urine Volume 1750 mL
== END 2023-09-17 10:22 | disposition home or self-care (01) ==
LOC: LBN 10:21
PROVIDERS: PCP Family Medicine; Visit Provider Internal Medicine Endocrinology, Diabetes & Metabolism
DX: M81.0 Age-related osteoporosis without current pathological fracture (principal)
CPT/HCPCS: 81050; 82340; 82570

== ENCOUNTER 2023-10-16 04:04 | Outpatient (RCR) | payer MEDICARE, SELFPAY ==
[2023-10-16] MEDS: Acetaminophen 325 MG TAB 650 MG PO (09:05)
[2023-10-16] MEDS: Normal Saline Flush 10 ML SYR IVP (09:05)
[2023-10-16] MEDS: ZOLEDRONIC ACID/MANNITOL/WATER 5 MG/100 ML BTL 200 MG IVPB (09:06)
== END 2023-10-30 23:59 | disposition home or self-care (01) ==
LOC: INF 04:04
PROVIDERS: PCP Family Medicine; Visit Provider Internal Medicine
DX: M81.0 Age-related osteoporosis without current pathological fracture (principal)
CPT/HCPCS: 96365; J3489

== ENCOUNTER → 2023-11-13 13:16 | Outpatient (BNVA) | payer MEDICARE, SELFPAY | PROVIDERS: PCP Family Medicine; Referring Provider Family Medicine; Visit Provider Physician Assistant | DX: M17.11 Unilateral primary osteoarthritis, right knee (principal); M17.12 Unilateral primary osteoarthritis, left knee | CPT/HCPCS: 20610; J1040 ==

== ENCOUNTER 2024-01-15 05:13 | Outpatient (CLI) | payer MEDICARE, SELFPAY ==
[2024-01-15 09:40] LABS: ALT 31 U/L (14-59); AST 22 U/L (15-37); Alkaline Phosphatase 57 U/L (46-116); Anion Gap 9.4 mmol/L (3-11); BUN 17 mg/dL (7-18); Bilirubin, Total 0.7 mg/dL (0.2-1.0); CO2 28.6 mmol/L (21.0-32.0); CREATININE 0.8 mg/dL (0.55-1.02); Calcium 9.6 mg/dL (8.5-10.1); Chloride 105 mmol/L (98-107); Estimated GFR 73.98 (mL/min/1.73m2); Glucose 104 mg/dL (74-106); Potassium 4.2 mmol/L (3.5-5.1); Sodium 143 mmol/L (136-145); TSH (W/Ref FT4) 0.42 uIU/mL (0.36-3.74); Total Protein 7.1 g/dL (6.4-8.2)
== END 2024-01-15 05:14 | disposition home or self-care (01) ==
LOC: LBO 05:13
PROVIDERS: PCP Family Medicine; Visit Provider Family Medicine
DX: E03.9 Hypothyroidism, unspecified (principal); Z00.00 Encounter for general adult medical examination without abnormal findings
CPT/HCPCS: 36415; 80053; 84443

== ENCOUNTER → 2024-04-15 08:23 | Outpatient (BNVA) | payer MEDICARE, SELFPAY | PROVIDERS: PCP Family Medicine; Referring Provider Family Medicine; Visit Provider Physician Assistant | DX: M17.0 Bilateral primary osteoarthritis of knee | CPT/HCPCS: 20610; J1010 ==

== ENCOUNTER 2024-05-17 03:31 | Outpatient (CLI) | payer MEDICARE, SELFPAY ==
--- NOTE | 2024-05-17 07:00 | DI.MAMMO_ITS ---
Exam(s) MAMMO SCREENING EXAM: MAMMO SCREENING CLINICAL HISTORY: screening,z12.39. TECHNIQUE: Bilateral full field digital CC and MLO mammographic images were obtained with 3D tomosyn thesis and utilizing computer aided detection (CAD). COMPARISON: Prior mammograms were reviewed. FINDINGS: There has been no significant change in the appearance and distribution of the fibroglandular tissue. No CAD designations There are no new spiculated masses nor malignant appearing microcalcification groups. There is no significant architectural distortion nor skin thickening-retraction. IMPRESSION: No radiographic evidence of malignancy. BI-RADS Category 1 - Negative Breast Density - Category B - Scattered areas of fibroglandular density Breast density Category C or D implies that the patient has dense breast tissue. Dense breast tissue can make it harder to find cancer on a mammogram. Dense breast tissue is also associated with an incr eased risk of breast cancer. This information about the result of the mammogram report was provided to the patient to raise their awareness. Use this report when you speak with the patient about their risks for breast cancer, which includes their family history. At that time, you may recommend additional screening tests (Ultrasoun d or MRI) as these tests may add significant information. A negative radiographic report should not delay biopsy if a dominant or clinically suspicious mass is present. Up to ten percent of cancers are not identified on mammography. A negative report may reinforce clinical impression. Adenosis and dense breasts may obscure an underlying neoplasm. False positive reports average 6 to 10%. Patient will receive a letter notifying them of these results.
== END 2024-05-17 03:51 ==
LOC: DI 03:31
PROVIDERS: PCP Family Medicine; Visit Provider Family Medicine
DX: Z12.31 Encounter for screening mammogram for malignant neoplasm of breast (principal)
CPT/HCPCS: 77063; 77067

== ENCOUNTER 2024-06-16 05:11 | Outpatient (CLI) | payer MEDICARE, SELFPAY ==
[2024-06-16 12:34] LABS: ALT 30 U/L (14-59); AST 22 U/L (15-37); Albumin 3.7 g/dL (3.4-5.0); Alkaline Phosphatase 86 U/L (46-116); Anion Gap 6.4 mmol/L (3-11); BUN 18 mg/dL (7-18); Bilirubin, Total 0.41 mg/dL (0.2-1.0); CO2 29.6 mmol/L (21.0-32.0); CREATININE 0.7 mg/dL (0.55-1.02); Calcium 9.3 mg/dL (8.5-10.1); Chloride 110 mmol/L (98-107); Glucose 98 mg/dL (74-106); Potassium 4.2 mmol/L (3.5-5.1); Sodium 146 mmol/L (136-145); Total Protein 7.2 g/dL (6.4-8.2)
== END 2024-06-16 05:12 | disposition home or self-care (01) ==
PROVIDERS: PCP Family Medicine; Visit Provider Family Medicine
DX: R10.13 Epigastric pain
CPT/HCPCS: 36415; 80053; 85025

== ENCOUNTER 2024-06-16 16:19 | Outpatient (REF) | payer MEDICARE, SELFPAY ==
[2024-06-25 15:25] LABS: Helicobacter pylori Ag, Feces Positive (Negative)
== END 2024-06-16 16:20 | disposition home or self-care (01) ==
LOC: LBN 16:19
PROVIDERS: PCP Family Medicine; Visit Provider Family Medicine
DX: R10.13 Epigastric pain (principal); Z87.11 Personal history of peptic ulcer disease; W57.XXXA Bitten or stung by nonvenomous insect and other nonvenomous arthropods, initial encounter
CPT/HCPCS: 87338

== ENCOUNTER 2024-06-21 02:15 | Outpatient (CLI) | payer MEDICARE, SELFPAY ==
[2024-06-21 09:13] LABS: Abs Immature Grans 0.03 10^3/uL (0.0-0.06); Absolute Basophil Count 0.07 10^3/uL (0.0-0.2); Absolute Eosinophil Count 0.15 10^3/uL (0.0-0.7); Absolute Monocyte Count 0.51 10^3/uL (0.1-0.8); Absolute Neutrophil Count 4.82 10^3/uL (1.2-6.7); Eosinophils % 2.1 %; HCT 41.7 % (36.0-46.0); HGB 13.8 g/dL (11.2-15.7); Immature Grans % 0.4 %; Lymphocytes % 23.4 %; MCHC 33.1 % (32.0-36.0); MCV 97 fL (80-95); MPV 9.6 fL (8.0-11.0); Neutrophils % 66.1 %; Platelet Count 238 10^3/uL (130-400); RBC 4.31 10^6/uL (3.93-5.22); RDW 12.8 % (11.7-14.6); RDW-SD 46.1 fL; WBC 7.28 10^3/uL (4.4-10.8)
== END 2024-06-21 02:16 | disposition home or self-care (01) ==
LOC: LBO 02:15
PROVIDERS: PCP Family Medicine; Visit Provider Family Medicine
DX: R10.13 Epigastric pain (principal)
CPT/HCPCS: 85025

== ENCOUNTER 2024-07-21 16:44 | Emergency (ER) | payer MEDICARE, SELFPAY ==
[2024-07-21 16:57] VITALS: BP 163/80; PULSE 67; RESP 20; TEMP 36.3; O2SAT 97
--- NOTE | 2024-07-21 17:17 | W.ED.GENAD ---
Discharge Plan Disposition Patient Disposition: Home Condition: Stable Discharge Details Clinical Impression: Laceration of left hand Primary Care Provider: Pari Guerra ED Provider: Ra Anaya Home Meds and New Rx's Prescriptions: No Action nitroglycerin 0.4 mg tablet, sublingual 0.4 mg SL Q5M PRN (Reason: chest pain) Qty: 25 0RF Rx Instructions: take one tablet under your tongue if chest pain with exercise/repeat in 5 min.x2 if needed acetaminophen 500 mg capsule 1,000 mg PO QAM Vicks DayQuil-NyQuil Cold-Flu 6.25-5-10-325 mg/15 mL liquid, sequential 5 ml PO HS PRN (Reason: postnasal drip) multivitamin [Daily Multi-Vitamin] Tablet 1 tab PO DAILY youtrpvu-zbqm-ailub-oreg-capry 100 mg-150 mg- 50 mg-150 mg capsule 1 cap PO 1XD Patient Comments: 2600mg per day of Tumeric olopatadine [Pataday Once Daily Relief] 0.2 % drops 1 drp ophthalmic (eye) DAILY lisinopril 30 mg tablet 30 mg PO DAILY Qty: 90 3RF atorvastatin 20 mg tablet 20 mg PO QHS Qty: 90 3RF Caltrate 600 plus D 600 mg-20 mcg (800 unit) tablet,chewable 1 tab PO DAILY cholecalciferol (vitamin D3) 1,000 UNIT capsule 2,000 unit PO DAILY magnesium oxide 250 MG tablet 250 mg PO DAILY levothyroxine 112 mcg tablet 112 mcg PO DAILY Qty: 90 3RF Discharge Instructions Instructions: Laceration Repair With Stitches ED Additional Instructions: You were seen in the emergency department for your laceration between the webspace of your second and third digit of your left hand, this was repaired by 5 sutures, these will need to be removed in 7 to 10 days. Keep the fingers stephie taped for the first 3 or so days, you may pad the sutures with any kind of nonstick dressing and then tape over it to help them from snagging on objects. Take Tylenol and ibuprofen as needed for pain. Do not submerge the wound for the first 48 to 72 hours but wash your hands is fine, keep the area clean and dry. Return earlier for any signs of infection like spreading redness from the area, drainage of pus from the area, red streaking up the arm, fever, severe increase in pain. Referrals: Pari Guerra MD [Primary Care Provider] - Discharge Data Discharge Date/Time-TO BE ENTERED AT DEPARTURE: 07/21/24 18:38 HPI General Date/Time Provider Initiated Documentation: 07/21/24 17:02. HPI Narrative: 84 year-old female presents to ED today by POV/ambulating with a chief complaint of L hand laceration in the web space between the 2nd and 3rd fingers, R-hand dominant with onset just prior to arrival on a picture frame that the glass broke from. Quality described as not overly painful, denies foreign body sensation, no radiation to numbness/tingling, ROM deficit, active bleeding, fall, other trauma. Severity is described as mild. Palliating factors include simple bandage with relief. Provoking factors include nothing specific. Events leading up to the incident/Associated Symptoms: Patients Tdap is UTD. Patient not anticoagulated. Related Data Home Medications ?Medication ?Instructions ?Recorded ?Confirmed cholecalciferol (vitamin D3) 25 2,000 unit PO DAILY 12/17/12 07/21/24 mcg (1,000 unit) capsule magnesium oxide 250 mg PO DAILY 10/14/17 07/21/24 nitroglycerin 0.4 mg sublingual 0.4 mg sublingual Q5M PRN chest 12/17/19 07/21/24 tablet pain #25 tabs acetaminophen 500 mg capsule 1,000 mg PO QAM 07/19/22 07/21/24 umnqbucynx-QW-XV-acetaminophen 5 ml PO HS PRN postnasal drip 07/30/23 07/21/24 6.25-5-10-325 mg/15 mL oral liquids,seq (Vicks DayQuil-NyQuil Cold-Flu) lisinopril 30 mg tablet 30 mg PO DAILY #90 tabs 07/30/23 07/21/24 multivitamin (Daily Multi-Vitamin 1 tab PO DAILY 07/30/23 07/21/24 tablet) olopatadine 0.2 % eye drops 1 drp ophthalmic (eye) DAILY 07/30/23 07/21/24 (Pataday Once Daily Relief) turmeric 100 mg-hansel 150 1 cap PO 1XD 07/30/23 07/21/24 mg-olive 50 mg-oreg 150 mg-capryl capsule atorvastatin 20 mg tablet 20 mg PO QHS #90 tabs 01/30/24 07/21/24 calcium 600 mg (as carbonate)-vit 1 tab PO DAILY 01/30/24 07/21/24 D3 20 mcg (800 unit) chewable tablet (Caltrate plus D) levothyroxine 112 mcg tablet 112 mcg PO DAILY #90 tabs 06/21/24 07/21/24 Previous Rx's ?Medication ?Instructions ?Recorded nitroglycerin 0.4 mg sublingual 0.4 mg sublingual Q5M PRN chest 12/17/19 tablet pain #25 tabs lisinopril 30 mg tablet 30 mg PO DAILY #90 tabs 07/30/23 atorvastatin 20 mg tablet 20 mg PO QHS #90 tabs 01/30/24 levothyroxine 112 mcg tablet 112 mcg PO DAILY #90 tabs 06/21/24 Allergies Allergy/AdvReac Type Severity Reaction Status Date / Time honey Allergy Severe GI Verified 07/21/24 17:00 upset/swelling of throat naproxen Allergy Severe SOB, Verified 07/21/24 17:00 Swelling LE Sulfa (Sulfonamide Allergy Severe Skin Rash Verified 07/21/24 17:00 Antibiotics) clindamycin Allergy Intermediate drug rash Verified 07/21/24 17:00 Penicillins Allergy Intermediate HIVES Verified 07/21/24 17:00 poison kathleen extract Allergy rash Verified 07/21/24 17:00 aspirin AdvReac Intermediate ulcer Verified 07/21/24 17:00 cephalexin AdvReac Intermediate drug rash Verified 07/21/24 17:00 steph flavor AdvReac Mild GI upset Verified 07/21/24 17:00 ibuprophen AdvReac Intermediate ulcer Uncoded 07/21/24 17:00 General Stated Complaint: Laceration MARIA ELENA: 4 Review of Systems All systems reviewed & are unremarkable except as noted in HPI and below Exam Narrative Exam Narrative: GENERAL APPEARANCE: Well-nourished, non-toxic, awake and alert, atraumatic, no acute distress. SKIN: Warm, pink, dry, 3 cm irregular laceration between the left second and third webspace, no active bleeding, no foreign bodies visualized, full range of motion of both the digits affected, no visualized tendons HEAD: Normocephalic, atraumatic, normal hair distribution for gender/age. EYES: Normal conjunctiva, no exudates on lids/lashes. ENT: Nares patent, no circumoral cyanosis, no facial swelling NECK: Supple, trachea midline, painless cervical ROM. LUNGS/CHEST: Non-labored respirations, normal A/P diameter, symmetrical expansion, no chest wall deformity HEART (CV/PV): Regular rate, L radial pulse 2+, no peripheral edema, no JVD. ABDOMEN: Soft, non-distended, no guarding. MSK: Normal ROM, no swelling/deformity to bilateral UEs or LEs, moving all extremities without weakness, no cyanosis, spine midline without tenderness, normal curvature. NEURO: Mental Status AAOx4 - alert to person, place, time, events No facial droop, no forehead involvement. Motor: No focal weakness - strength 5/5 in bilateral UEs and LEs, proximal and distal, symmetric. Sensory: sensation intact to light touch globally. Gait normal: patient ambulated without ataxia into ED room. PSYCH: euthymic, cooperative, pleasant, appropriate speech Course Vital Signs Vital signs: Vital Signs Temperature 36.3 C L 07/21/24 16:57 Pulse 67 07/21/24 16:57 Respiratory Rate 20 07/21/24 16:57 Blood Pressure 163/80 H 07/21/24 16:57 Pulse Oximetry 97 07/21/24 16:57 Temperature 36.3 C L 07/21/24 16:57 Pulse 67 07/21/24 16:57 Respiratory Rate 20 07/21/24 16:57 Blood Pressure 163/80 H 07/21/24 16:57 Blood Pressure Position Sitting 07/21/24 16:57 Pulse Oximetry 97 07/21/24 16:57 Oxygen Delivery Method Room Air 07/21/24 16:57 Oxygen Flow Rate 0 07/21/24 16:57 Procedures Laceration Laceration 1: Site: hand Side (If applicable): left Size (cm): 3 Description: irregular and clean Depth: simple, single layer Local anesthetic: Lidocaine 1% and LET(lidocaine epinephrine tetracaine) Amount of anesthesia used (mL): 3 Pre-repair: wound explored, irrigated extensively and deep structures intact Skin layer closed with: nylon Size (cm): 5-0 Number of sutures: 5 Technique: simple, interrupted Medical Decision Making This dictation utilizes [id number]-yw-evzo dictation software and may contain unedited grammatical errors. 84 year-old female presents to ED today by POV/ambulating with a chief complaint of L hand laceration in the web space between the 2nd and 3rd fingers, R-hand dominant with onset just prior to arrival on a picture frame that the glass broke from. Quality described as not overly painful, denies foreign body sensation, no radiation to numbness/tingling, ROM deficit, active bleeding, fall, other trauma. Severity is described as mild. Palliating factors include simple bandage with relief. Provoking factors include nothing specific. Events leading up to the incident/Associated Symptoms: Patients Tdap is UTD. Patients' medical history: Noncontributory. Family and social history: Noncontributory. Pertinent exam findings / vital signs include 3 cm irregular laceration between the left second and third webspace, no active bleeding, no foreign bodies visualized, full range of motion of both the digits affected, no visualized tendons. Differential / pathologies of concern include laceration, not tendon rupture, not infection, no foreign body. Diagnostic studies of: -None. Interventions of: #5 sutures of 5-0 ethilon in L 2nd/3rd webspace. ED Course/Assessment/Plan: 84-year-old female presents with a left hand laceration that was repaired by suture, the wound was clean, wound edges approximated well, there was no range of motion deficits, no tendons visualized, counseled on strict return criteria for any signs of infection and returning in 7 to 10 days for suture removal. Findings not consistent with tendon laceration, contaminated wound. Disposition of Laceration of Left Hand. Patient verbalized understanding of the plan and return to ED criteria and engaged in shared decision making. Medical Records Medical records reviewed: Yes I reviewed the patient's medical records. Quality:SDOH Health Related Social Needs: No Data to Display PFSH All Active Problems (Updated 07/21/24 @ 18:19 by ELI Fields) Laceration of left hand (Acute) H. pylori infection (Acute) Epigastric pain (Acute) Heart murmur (Acute) Tricuspid valve: There was moderate regurgitation. Overweight (BMI 25.0-29.9) (Acute) Tendonitis of long head of biceps brachii of right shoulder (Acute) Rotator cuff arthropathy of right shoulder (Acute) Primary osteoarthritis, right shoulder (Acute) Nodule of nose (Acute) Primary osteoarthritis of right knee (Chronic) Injected: 05/13/2018; 01/19/2021; 10/04/2021; 03/25/2022; 09/30/22; 03/13/23; 04/15/24 Primary osteoarthritis of left knee (Chronic) Injected: 05/13/2018; 01/15/2019; 01/19/21; 10/04/2021; 03/25/2022; 09/30/22; 03/13/23; 04/15/24 Osteoporosis (Acute) [place] [facility] [place] Reclast infusions. 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 Medical History Cytologic smear of cervix showing atypical squamous cells, cannot exclude high grade squamous intraepithelial lesion Gastric ulcer (08/18/08) non-infectious, resolved when aspirin stopped and with prilosec. 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 Rotator Cuff Repair (~2008) Endometrial Biopsy Family History (Updated 01/17/23 @ 15:13 by Pari Guerra MD) Mother , AGE 88 Essential hypertension Non-Hodgkin's lymphoma Father , AGE 68 Diabetes Essential hypertension Heart disease Maternal Grandfather , AGE 85 Diabetes Essential hypertension Stroke Paternal Grandfather , AGE 78 Colon cancer Maternal Grandmother Stroke Paternal Grandmother , AGE 70 Stroke Heart disease Son No problems noted. Son No problems noted. Son No problems noted. Other Adopted Social History (Updated 01/16/22 @ 16:22 by Abimbola Israel) Smoking/Tobacco Use Status: Former Tobacco Use Quit Date: 09/01/82 Tobacco: How many years used: 8 Quit status: quit date established Second Hand Exposure: Yes Smoking risk assessment performed?: Yes Alcohol Intake: current Alcohol Intake frequency: a few times a month Alcohol type: wine Drug use: Never Substance use type: does not use Counseling given: No Counseling provided: none Caregiver/Support person: No Household members: none Housing: house Number of Children: 3 number of grandchildren: 7 Communication Needs: None Do you need help understanding health information?: Never 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 Pets and animals: Yes Pets and animals: cat(s) Sexually active: No Do you think of yourself as: straight/heterosexual Current gender identity: female What is your relationship status?: How often do you talk on the phone with friends or family?: three or more times per week How often do you get together with friends or relatives?: three or more times per week How often do you attend latter-day or amish services?: 1-3 times per year Do you belong to any clubs or organized social groups?: yes Panel score (0-1 are the most socially isolated patients): 2 What type of physical activity do you participate in: walking and other Details: Streching Duration: 30-45 minutes/day Frequency: 3-4 times per week Cassandra/Confucianism: No preference Special cassandra needs: No Seatbelt use: always Drive intox or ride w/intox pack train driver: No Do you feel safe at home: Yes Do you feel safe in your relationship?: Yes Additional Social history: Enjoys walking, XC skiing.
[2024-07-21] MEDS: Lidocaine/Epinephri/Tetracaine Topical Gel 3 ML (17:42)
[2024-07-21] MEDS: Lidocaine 1% Pres-Free 5 ML VIAL (17:54)
[2024-07-21 18:34] VITALS: BP 169/84; PULSE 67; RESP 16; O2SAT 95
--- NOTE | 2024-07-21 18:36 | NUR.NOTE ---
Nursing Note: Non-stick telfa gauze placed over pt's repaired lac and secured w/ gauze wrap; 2nd and 3rd digit(s) stephie taped per MD order. Pt tolerated dressing application well.
== END 2024-07-21 18:38 | disposition home or self-care (01) ==
LOC: ER 18:39
PROVIDERS: Emergency Provider Physician Assistant; PCP Family Medicine
DX: S61.412A Laceration without foreign body of left hand, initial encounter (principal); W25.XXXA Contact with sharp glass, initial encounter
CPT/HCPCS: 12002; J2003

== ENCOUNTER 2024-10-27 13:36 | Outpatient (CLI) | payer MEDICARE, SELFPAY ==
[2024-10-27 14:04] LABS: CREATININE 0.8 mg/dL (0.55-1.02); Estimated GFR 73.52 (mL/min/1.73m2)
== END 2024-10-27 13:37 | disposition home or self-care (01) ==
LOC: LBO 13:36
PROVIDERS: PCP Family Medicine; Visit Provider Internal Medicine Endocrinology, Diabetes & Metabolism
DX: M81.0 Age-related osteoporosis without current pathological fracture (principal)
CPT/HCPCS: 36415; 82565

== ENCOUNTER 2024-11-03 02:52 | Outpatient (RCR) | payer MEDICARE, SELFPAY ==
[2024-11-03] MEDS: ZOLEDRONIC ACID/MANNITOL/WATER 5 MG/100 ML BTL 200 MG IVPB (09:01)
[2024-11-03] MEDS: Normal Saline Flush 5 ML SYR IVP (09:01)
== END 2024-11-29 23:59 | disposition home or self-care (01) ==
LOC: INF 02:52
PROVIDERS: PCP Family Medicine; Visit Provider Internal Medicine
DX: M81.0 Age-related osteoporosis without current pathological fracture (principal)
CPT/HCPCS: 96365; J3489

== ENCOUNTER → 2024-11-05 09:33 | Outpatient (BNVA) | payer MEDICARE, SELFPAY | PROVIDERS: PCP Family Medicine; Referring Provider Family Medicine | DX: M17.11 Unilateral primary osteoarthritis, right knee (principal); M17.12 Unilateral primary osteoarthritis, left knee | CPT/HCPCS: 20610; 99213; J1010 ==

== ENCOUNTER 2024-11-18 01:21 | Outpatient (CLI) | payer MEDICARE, SELFPAY ==
--- NOTE | 2024-11-18 07:15 | DI.RAD_ITS ---
Exam(s) XR LUMBAR SPINE COMPLETE EXAM: XR LUMBAR SPINE COMPLETE CLINICAL HISTORY: chronic left lower back pain,m54.50. TECHNIQUE: 2D digital imaging was performed. Five views. COMPARISON: CR XR DEXA BONE DENSITY W/WO NOAH from 03/22/2022 FINDINGS: BONES: No fracture or destructive lesion. Vertebral body heights are maintained. facet hypertrophy identified in the lower lumbar levels. The bones appear osteopenic. Disc space narrowing and end plate osteophyte formation in the lower thoracic spine. DISKS: Intervertebral disc spaces are maintained. Minimal endplate osteophytes. ALIGNMENT: Lumbar spinal alignment is within normal limits. SOFT TISSUE: Normal. IMPRESSION: Facet degenerative changes lower lumbar spine. The disc spaces and vertebral bodies are maintained. DATA REPOSITORY: RADIATION DOSE DELIVERED:
== END 2024-11-18 01:41 ==
LOC: DI 01:21
PROVIDERS: PCP Family Medicine; Visit Provider Family Medicine
DX: M54.50 Low back pain, unspecified (principal); G89.29 Other chronic pain
CPT/HCPCS: 36415; 72110; 82607

== ENCOUNTER 2024-11-18 13:10 | Outpatient (CLI) | payer MEDICARE, SELFPAY ==
[2024-11-18 11:52] LABS: Vitamin B12 359 pg/mL (193-986)
== END 2024-11-18 13:11 | disposition home or self-care (01) ==
LOC: LBO 13:13
PROVIDERS: PCP Family Medicine; Visit Provider Family Medicine
DX: R20.2 Paresthesia of skin (principal)
CPT/HCPCS: 36415; 82607

== ENCOUNTER → 2025-04-27 10:31 | Outpatient (BNVA) | payer MEDICARE, SELFPAY | PROVIDERS: PCP Family Medicine; Referring Provider Family Medicine; Visit Provider Psychiatry & Neurology Neurology | DX: R20.2 Paresthesia of skin (principal); I10 Essential (primary) hypertension | CPT/HCPCS: 95909 ==

== ENCOUNTER → 2025-05-13 10:23 | Outpatient (BNVA) | payer MEDICARE, SELFPAY | PROVIDERS: PCP Family Medicine; Referring Provider Family Medicine; Visit Provider Physician Assistant | DX: M17.0 Bilateral primary osteoarthritis of knee (principal) | CPT/HCPCS: 20610; J1010 ==

== ENCOUNTER 2025-06-15 00:06 | Outpatient (CLI) | payer MEDICARE, SELFPAY ==
[2025-06-15 09:38] LABS: ALT 31 U/L (14-59); AST 13 U/L (15-37); Albumin 3.8 g/dL (3.4-5.0); Alkaline Phosphatase 81 U/L (46-116); Anion Gap 9.6 mmol/L (3-11); BUN 14 mg/dL (7-18); Bilirubin, Total 0.6 mg/dL (0.2-1.0); CO2 27.4 mmol/L (21.0-32.0); Calcium 9.4 mg/dL (8.5-10.1); Calculated LDL 82 mg/dL (<100); Chloride 105 mmol/L (98-107); Cholesterol 200 mg/dL (<200); Estimated GFR 73.06 (mL/min/1.73m2); Glucose 106 mg/dL (74-106); HDL Cholesterol 101 mg/dL (>or=50); Potassium 4.0 mmol/L (3.5-5.1); Sodium 142 mmol/L (136-145); TSH (W/Ref FT4) 0.48 uIU/mL (0.36-3.74); Total Protein 7.1 g/dL (6.4-8.2); Triglyceride 85 mg/dL (<150)
== END 2025-06-15 00:07 | disposition home or self-care (01) ==
LOC: LBO 00:06
PROVIDERS: PCP Family Medicine; Visit Provider Family Medicine
DX: Z13.6 Encounter for screening for cardiovascular disorders (principal); E03.9 Hypothyroidism, unspecified; I25.118 Atherosclerotic heart disease of native coronary artery with other forms of angina pectoris; Z00.00 Encounter for general adult medical examination without abnormal findings; I10 Essential (primary) hypertension
CPT/HCPCS: 36415; 77063; 77067; 80053; 80061; 84443

== ENCOUNTER 2025-06-15 00:08 | Outpatient (CLI) | payer MEDICARE, SELFPAY ==
--- NOTE | 2025-06-15 06:30 | DI.MAMMO_ITS ---
Exam(s) MAMMO SCREENING EXAM: MAMMO SCREENING CLINICAL HISTORY: screening,z12.39 TECHNIQUE: Bilateral full field digital CC and MLO mammographic images were obtained with 3D tomosynthesis and utilizing computer aided detection (CAD). COMPARISON: Comparison is made with prior examinations. FINDINGS: Masses/Architectural Distortion: No suspicious masses or areas of architectural distortion are present. Microcalcifications: No suspicious pleomorphic-type are seen. Skin Thickening/Nipple Retraction: None. IMPRESSION: 1. No significant interval change with no specific features of malignancy noted. 2. Unless there is more urgent need, screening mammography is recommended, as per [employer] guidelines. BI-RADS Category 1 - Negative Breast Density - Category B - There are scattered areas of fibroglandular density. Breast density Category C or D implies that the patient has dense breast tissue. Dense breast tissue can make it harder to find cancer on a mammogram. Dense breast tissue is also associated with an increased risk of breast cancer. This information about the result of the mammogram report was provided to the patient to raise their awareness. Use this report when you speak with the patient about their risks for breast cancer, which includes their family history. At that time, you may recommend additional screening tests (Ultrasound or MRI) as these tests may add significant information. A negative radiographic report should not delay biopsy if a dominant or clinically suspicious mass is present. Up to ten percent of cancers are not identified on mammography. A negative report may reinforce clinical impression. Adenosis and dense breasts may obscure an underlying neoplasm. False positive reports average 6 to 10%. Patient will receive a letter notifying them of these results.
== END 2025-06-15 00:28 ==
LOC: DI 00:08
PROVIDERS: PCP Family Medicine; Visit Provider Family Medicine
DX: Z12.31 Encounter for screening mammogram for malignant neoplasm of breast (principal)
CPT/HCPCS: 77063; 77067